=== PATIENT | female | born 1970 | race Caucasian/White ===

== ENCOUNTER 2021-02-05 11:41 | Day surgery (SDC) | payer BC, OTHER ==
[~2021-02-05] VITALS: Ht 170.2 cm; Wt 118.1 kg
[~2021-02-05 11:41] MED LIST: ASPIR 8181 MG PO; DILTIAZEM 24HR180 M3 PO; DUTASTERIDE0.5 MG; DUTASTERIDE0.5 MG PO; IBUPROFEN800 MG PO; MOBIC15 MG; MOBIC15 MG PO; OMEGA-31000 MG PO; OMEPRAZOLE20 MG PO; PRESERVISION A1 EAC3 PO; SIMVASTATIN20 MG PO; TOPAMAX25 MG PO; VITAMIN D32000 UNI1 PO; ZOLOFT100 MG PO
--- NOTE | 2021-02-05 14:57 | NUR ---
02/05/21 1457 Syl Henley 1404 PT ARRIVED IN PACU AWAKE WITH NO C/O'S. 1415 SITTING UP IN BED SIPPING ON JUICE. 1430 DC INSTRUCTIONS GIVEN. ALL QUESTIONS ANSWERED. 1440 LEFT VIA W/C.
--- NOTE | 2021-02-10 12:23 | OR ---
[facility] [address] [place], [place] [address] Signed DATE OF OPERATION: 02/05/2021 SURGEON: Scot Man MD PREOPERATIVE DIAGNOSES: 1. Known history of probable irritable bowel syndrome. 2. Family history of colon cancer (rectal cancer, father). 3. Recent history of significant constipation. POSTOPERATIVE DIAGNOSIS: Polyps x2 and otherwise normal colon. PROCEDURE: 1. Total colonoscopy to cecum with biopsy of cecum and rectum. 2. Cold morcellation polypectomy x1 of splenic flexure polyp. 3. Cold snare polypectomy of rectosigmoid polyp with application of hemoclip. ANESTHESIA: Intravenous sedation, fentanyl 100 mcg and Versed 7 mg. INDICATION: This 50-year-old white woman is a patient currently of Dr. Callahan of [place], [place]. She previously saw TRAVIS Gonzalez. She has family history of rectal cancer in her father. The patient is known to me from the past having been treated for irritable bowel syndrome (alternating constipation with diarrhea) and was markedly improved with a low FODMAP diet. She additionally had significant weight loss, likely related to the low carbohydrate component of the diet. She has since regained a fair amount of weight, having a significant amount of bereavement with the recent of her younger daughter due to gastroparesis and concomitant Hodgkin's disease. She is admitted at this time to undergo colonoscopy to better characterize her more recent episode of severe constipation such that she required emergency room evaluation. She understands the risks of colonoscopy including, but not limited to bleeding, infection and perforation, and wished to proceed. FINDINGS: The prep was good. Complete colonoscopy was undertaken to the cecum without question. She had two polyps, one in the splenic flexure. The other at the rectosigmoid. Both were excised completely. The remaining colon was normal. Biopsies were obtained to assess for occult colitis. Electronically Signed By: SCOT MAN MD 02/10/21 6723 PATIENT NAME: ROME SEVILLA OPERATIVE REPORT DATE OF : 68 REPORT #: [id number] PHYSICIAN: SCOT MAN MD PCP: SHABBIR CALLAHAN DO REPORT IS CONFIDENTIAL AND NOT TO BE RELEASED WITHOUT AUTHORIZATION [facility] [address] [place], [place] [address] Signed DESCRIPTION OF PROCEDURE: The patient was brought to the endoscopy suite and placed in the lateral decubitus position given intravenous sedation to the point of slurred speech and nystagmus. Digital rectal examination was normal. An Olympus video colonoscope was passed in the rectum and manipulated throughout the colon ultimately intubating the cecum itself. The ileocecal valve and appendiceal orifice were normal. Partial intubation of the ileum was accomplished, but it was short-lived. It appeared normal. It was too short lived to allow for biopsy unfortunately. The scope was then withdrawn and biopsy was obtained of the cecum to assess for occult colitis. Careful withdrawal of scope showed no sign of abnormality until the splenic flexure, where a small sessile probably adenomatous polyp was noted. An attempt was made to excise with a cold snare technique, but this was unsuccessful and therefore cold morcellation technique was used. Complete excision was undertaken. The scope was withdrawn more in the rectosigmoid was a larger quite obviously adenomatous polyp, this was excised with cold snare technique. There was persistent oozing at the base of the polypectomy and on that basis a hemoclip was applied. The polyp was passed for pathology. The scope was further withdrawn. Biopsies were taken of the rectum, though it appeared normal to assess for occult colitis. The scope was removed and the patient was taken to the recovery room in good condition. CONCLUDING DIAGNOSIS: Polyps x2, otherwise normal. PLAN: We would recommend re-initiation of a low FODMAP diet if possible. We will see the patient back in 4 to 6 weeks and review her progress and pathology reports at that time. MD JAZMIN Dominguez/JESSAL /[id number] cc: Dr. London Jimenez [place] Electronically Signed By: SCOT MAN MD 02/10/21 1223 PATIENT NAME: ROME SEVILLA OPERATIVE REPORT DATE OF : 68 REPORT #: [id number] PHYSICIAN: SCOT MAN MD PCP: SHABBIR CALLAHAN DO REPORT IS CONFIDENTIAL AND NOT TO BE RELEASED WITHOUT AUTHORIZATION [facility] [address] [place] [id number] Signed Copies: ~ Electronically Signed By: SCOT MAN MD 02/10/21 1223 PATIENT NAME: KANDY SEVILLANaty Alfonso OPERATIVE REPORT DATE OF : 68 REPORT #: [id number] PHYSICIAN: SCOT MAN MD PCP: SHABBIR CALLAHAN DO REPORT IS CONFIDENTIAL AND NOT TO BE RELEASED WITHOUT AUTHORIZATION
--- NOTE | 2021-02-11 12:51 | PATH ---
[facility] [place] [facility] [address] [place], [place] [address] Signed SPECIMEN(S): A CECUM SPECIMEN(S): B SPLENIC FLEXURE POLYP SPECIMEN(S): C RECTOSIGMOID POLYP SPECIMEN(S): D RECTUM SPECIMEN SOURCE: A. CECUM B. SPLENIC FLEXURE POLYP C. RECTOSIGMOID POLYP D. RECTUM CLINICAL HISTORY: Family history of colon cancer; IBS. Postop diagnosis: Polyps x 2. Rule out #3 rectosigmoid polyp MICROSCOPIC DESCRIPTION: Histologic sections of all submitted blocks are examined by light microscopy. These findings, together with the gross examination, support the pathologic diagnosis. FINAL PATHOLOGIC DIAGNOSIS: A. Colon, cecum, biopsy: - Colonic mucosa with no histopathologic abnormality. - Negative for active, chronic, or microscopic colitis. - Negative for dysplasia or malignancy. B. Colon, splenic flexure, polyp, polypectomy: - Tubular adenoma. - Negative for high-grade dysplasia or malignancy. C. Colon, rectosigmoid, polyp, polypectomy: - Fragments of tubular adenoma. - Negative for high-grade dysplasia or malignancy. D. Rectum, biopsy: - Rectal mucosa with no histopathologic abnormality. - Negative for dysplasia or malignancy. NAL:cml:C2NR GROSS DESCRIPTION: Four specimens are received in four containers, labeled `` Rome Souza. A. The specimen, labeled "Rome Souza, #1," and designated as "Merritt, cecum" is received in formalin and consists of two basurto soft tissue fragments that measure 0.3 and 0.4 cm in PATIENT NAME: ROME SOUZA PATHOLOGY DATE OF : 68 REPORT #: [id number] PHYSICIAN: YASH JACKSON PCP: SHABBIR TOVAR DO REPORT IS CONFIDENTIAL AND NOT TO BE RELEASED WITHOUT AUTHORIZATION [facility] [place] [facility] [address] [facility] [place] [address] Signed greatest dimension. The specimen is entirely submitted in cassette (A1). B. The specimen, labeled "Rome Souza, #2," and designated as "[place], splenic flexure polyp" is received in formalin and consists of two basurto soft tissue fragments that measure 0.2 and 0.3 cm in greatest dimension. The specimen is entirely submitted in cassette (B1). C. The specimen, labeled "Harley, Rome, #3," and designated as "Harley, rectosigmoid polyp" is received in formalin and consists of two basurto soft tissue fragments that measure 0.3 and 0.5 cm in greatest dimension. The specimen is entirely submitted in cassette (C1). D. The specimen, labeled "Rome Souza, #4," and designated as "[place]erritt, rectum" is received in formalin and consists of one basurto soft tissue fragment that measures 0.3 cm in greatest dimension. The specimen is entirely submitted in cassette (D1). FB (under the direct supervision of a pathologist) The Gross Description was prepared using a voice recognition system. The report was reviewed for accuracy; however, sound-alike word errors, addition and/or deletions may occur. If there is any question about this report, please contact Client Services. PERFORMING LABORATORY: The technical component was performed by [facility], [address] [place] [address] (Manager Managed Care: Tammy Nunes MD; CLIA# [id number]). [facility] was [facility], [address] [place] [address] (CLIA# [id number]). Diagnostician: Sofi Radford MD Pathologist Electronically Signed 02/11/2021 Copies: ~ PATIENT NAME: ROME SOUZA PATHOLOGY DATE OF : 68 REPORT #: [id number] PHYSICIAN: YASH PATHOLOGY PCP: SHABBIR TOVAR DO REPORT IS CONFIDENTIAL AND NOT TO BE RELEASED WITHOUT AUTHORIZATION
== END 2021-02-05 14:40 | disposition home or self-care (01) ==
LOC: DS 11:41 → OPS 11:41 → DS 13:00 → OPS 14:40
PROVIDERS: ATTEND Surgery
PROC: 0DBL8ZX Excision of Transverse Colon, Via Natural or Artificial Opening Endoscopic, Diagnostic (ICD-10-PCS; 2021-02-05)
PROC: 0DBN8ZX Excision of Sigmoid Colon, Via Natural or Artificial Opening Endoscopic, Diagnostic (ICD-10-PCS; principal; 2021-02-05 13:00)
DX: K58.2 Mixed irritable bowel syndrome (principal); D12.3 Benign neoplasm of transverse colon; D12.7 Benign neoplasm of rectosigmoid junction; K21.9 Gastro-esophageal reflux disease without esophagitis; E66.01 Morbid (severe) obesity due to excess calories; Z68.41 Body mass index [BMI] 40.0-44.9, adult; Z88.1 Allergy status to other antibiotic agents; Z88.5 Allergy status to narcotic agent; Z80.0 Family history of malignant neoplasm of digestive organs
CPT/HCPCS: 99153; G0500; J2250; J3010; J7121

== ENCOUNTER 2024-04-04 12:12 | Day surgery (SDC) | payer BC, OTHER ==
[~2024-04-04] VITALS: Ht 170.2 cm; Wt 123.6 kg
[~2024-04-04 12:12] MED LIST changes: +IBLOOD GLUCOSE TEST STRIP 1 EA TEST VI PRN; +LACTATED RINGER'S 1,000 ML IV SCH; +LIDOCAINE HCL 1% 5 ML SDV INJ ONE; +LIDOCAINE HCL 4% 50 ML BTL TOP SCH; +MIDAZOLAM HCL 5 MG/5 ML VIAL IV PRN; +MIDAZOLAM HCL 5 MG/5 ML VIAL ONE; +fentaNYL citrate 100 MCG/2 ML VIAL IV PRN; +fentaNYL citrate 100 MCG/2 ML VIAL ONE
[2024-04-04] MEDS ORDERED: CRESTOR40 MG NG (12:37)
[2024-04-04 12:47] VITALS: BP 138/88
--- NOTE | 2024-04-04 14:23 | NUR ---
04/04/24 1423 Raven Leon 1415- PT ARRIVES TO PACU REACTIVE TO VOICE. PT REPORTS NO PAIN OR NAUSEA. RESP EVEN AND UNLABORED. OXYGEN SAT HIGH 90'S ON 1L VIA CO2 NC. 1421- DR. MAN AT THE BEDSIDE TO TALK WITH THE PT.
[2024-04-04 15:35] VITALS: BP 141/90
--- NOTE | 2024-04-04 19:29 | OR ---
[facility] [address] [place], [place] [address] Signed DATE OF OPERATION: 04/04/2024 SURGEON: Scot Man MD PREOPERATIVE DIAGNOSES: 1. Family history of rectal cancer (father). 2. Known gastroesophageal reflux disease. 3. History of polyps in 2020. POSTOPERATIVE DIAGNOSES: 1. Normal colon to cecum. 2. Hiatal hernia without evidence of esophagitis; mild gastritis. PROCEDURES: 1. Esophagogastroduodenoscopy with biopsy. 2. Total colonoscopy to cecum. ANESTHESIA: Intravenous sedation; fentanyl 150 mcg and Versed 7 mg total. INDICATIONS: This 53-year-old white woman is a patient of Dr. Callahan of [place], [place]. She is known to me from the past. She last underwent colonoscopy in 2020 where she was found to have three polyps, all were excised. She has family history of rectal cancer in her father. She has no current symptoms of bleeding, diarrhea, or constipation. Additionally, she has underlying long-standing gastroesophageal reflux disease. She has never had evaluation for this to assess for Rodas's esophagus or other abnormalities. She is admitted at this time to undergo upper endoscopy and colonoscopy. She understands the risk of bleeding, infection, and perforation. FINDINGS: Upper endoscopy showed no evidence of neoplasm, Rodas's esophagus, or even esophagitis proper. She did have a small hiatal hernia and very poor flap valve. There was mild antral gastritis but no sign of ulceration. CLOtest was negative 20 minutes post procedure. On colonoscopy, the prep was quite good. Complete colonoscopy was undertaken to the cecum. There was no evidence of polyps, diverticular formation, colitis, or cancer. DESCRIPTION OF PROCEDURE: Electronically Signed By: SCOT MAN MD 04/04/241928 PATIENT NAME: ROME SEVILLA OPERATIVE REPORT DATE OF : 68 REPORT #: [id number] PHYSICIAN: SCOT MAN MD PCP: SHABBIR CALLAHAN DO REPORT IS CONFIDENTIAL AND NOT TO BE RELEASED WITHOUT AUTHORIZATION [facility] [address] [place], [place] [address] Signed The patient was brought to the endoscopy suite and placed in the lateral decubitus position, given lidocaine hypopharyngeal anesthesia. She was given intravenous sedation to the point of slurred speech and nystagmus with full cardiopulmonary monitoring. A bite block was placed. An Olympus video upper endoscope was passed in the hypopharynx. The vocal cords appeared normal. Scope was advanced to the esophagus without problem, throughout its length it was entirely normal. There was no sign of stricture, neoplasm, inflammation, Rodas's epithelium, or other problem. The scope was advanced to the stomach which was insufflated with air. Rugal folds were normal. The scope was passed to the antrum, which showed mild inflammatory change but not much and certainly no ulceration. The pylorus was normal. Scope was passed through into the duodenal which was normal. Biopsies were taken of the duodenum to assess for celiac disease. The scope was withdrawn and biopsy was then taken of the antrum for both KESHA and pathologic testing. Retroflexed view was undertaken showing a poor flap valve and with withdrawal of the easy passage into the esophagus consistent with very poor flap valve and hiatal hernia. The scope was straightened withdrawn and biopsies then taken of the normal-appearing mucosa of the distal esophagus. Further withdrawal allowed for biopsy of the mid esophagus which was also normal. Reinspection of the vocal cords showed them to be normal. The scope was removed and plans were made for colonoscopy. Additional sedation was given and digital rectal examination performed showing no sign of abnormality. Olympus video colonoscope was passed in the rectum and manipulated throughout the colon ultimately intubating the cecum itself. The ileocecal valve and appendiceal orifice were normal. The prep was quite good. The scope was then withdrawn and examination throughout showed no sign of polyps, diverticular formation, colitis, or cancer. Retroflexed view of the rectum was normal. Scope was removed. The patient was taken to the recovery room in good condition. CONCLUDING DIAGNOSES: 1. Hiatal hernia without associated esophagitis, mild gastritis. 2. Normal colon. PLAN: 1. Recommend continued use of PPI medication for symptom control. Medication is safe on long-term (see [facility] Bulletin winter issue 2020). 2. Repeat colonoscopy in 5 years based on 1st degree relative with colon cancer (father, rectum). She will return to the ongoing care of Hom[facility] Brooks [place]. Scot Man MD Electronically Signed By: SCOT MAN MD 04/04/24 1929 PATIENT NAME: ROME SEVILLA OPERATIVE REPORT DATE OF : 68 REPORT #: [id number] PHYSICIAN: SCOT AMN MD PCP: SHABBIR CALLAHAN DO REPORT IS CONFIDENTIAL AND NOT TO BE RELEASED WITHOUT AUTHORIZATION [address] [address] Signed /[facility] /[id number] cc: Hom[facility] Brooks [place]. Copies: ~ Electronically Signed By: SCOT MAN MD 04/04/24 1929 PATIENT NAME: ROME SEVILLA DARLEEN OPERATIVE REPORT DATE OF : 68 REPORT #: [id number] PHYSICIAN: SCOT MAN MD PCP: SHABBIR CALLAHAN DO REPORT IS CONFIDENTIAL AND NOT TO BE RELEASED WITHOUT AUTHORIZATION
--- NOTE | 2024-04-07 14:29 | PATH ---
[facility] [address] [place], [place] [address] Signed SPECIMEN(S): A DUODENAL BIOPSY SPECIMEN(S): B ANTRUM BIOPSY SPECIMEN(S): C LOWER ESOPHAGUS BIOPSY SPECIMEN(S): D MID ESOPHAGUS BIOPSY SPECIMEN SOURCE: A. DUODENAL BIOPSY B. ANTRUM BIOPSY C. LOWER ESOPHAGUS BIOPSY D. MID ESOPHAGUS BIOPSY CLINICAL HISTORY: GERD, history of polyps. Small hiatal hernia, mild gastritis, normal colon. FINAL PATHOLOGIC DIAGNOSIS: A. Duodenum, biopsy: - No significant histopathology. B. Stomach, antrum, biopsy: - No significant histopathologic alterations. C. Esophagus, lower, biopsy: - Portions of unremarkable gastric mucosa. - Portions of unremarkable squamous mucosa. - No evidence of Rodas's esophagus. D. Esophagus, mid, biopsy: - Portions of unremarkable squamous mucosa. COMMENT: A. The sections from the duodenal biopsy show portions of duodenal mucosa with long fingerlike villi. There is no villous atrophy, crypt hyperplasia or intraepithelial lymphocytosis making a diagnosis of celiac disease unlikely. There is no evidence of peptic duodenitis, microorganisms, abnormal infiltrates or neoplasia. B. The sections through the gastric biopsies show fragments of histologically unremarkable oxyntic mucosa. There is no evidence of acute or chronic inflammation. There is no evidence of H. pylori, intestinal metaplasia, abnormal infiltrates or neoplasia. C. The sections show fragments of unremarkable gastric and squamous mucosa. There is no evidence of acute or chronic inflammation. The specialized columnar epithelium of Rodas's esophagus is not identified. There is no evidence of Helicobacter pylori. D. The biopsy shows normal appearing squamous epithelium. There is no evidence PATIENT NAME: ROME SEVILLA PATHOLOGY DATE OF : 68 REPORT #: [id number] PHYSICIAN: YASH JACKSON PCP: SHABBIR TOVAR DO REPORT IS CONFIDENTIAL AND NOT TO BE RELEASED WITHOUT AUTHORIZATION [facility] [address] [place], [place] [address] Signed of acute or chronic inflammation. No glandular mucosa is present. [facility] MICROSCOPIC EXAMINATION: Histologic sections of all submitted blocks are examined by light microscopy. These findings, together with the gross examination, support the pathologic diagnosis. GROSS DESCRIPTION: A. The specimen, labeled and designated "[place], T, duodenal biopsy," is received in formalin and consists of two basurto soft tissue fragments, ranging from 0.3-0.5 cm. Entirely submitted in (A1). B. The specimen, labeled and designated "[place], T, antrum biopsy one," is received in formalin and consists of one basurto soft tissue fragment, 0.4 cm. Entirely submitted in (B1). C. The specimen, labeled and designated "Harley, T, lower esophagus biopsy," is received in formalin and consists of two basurto soft tissue fragments, ranging from 0.3-0.5 cm. Entirely submitted in (C1). D. The specimen, labeled and designated "[place], T, mid esophagus biopsy," is received in formalin and consists of two basurto soft tissue fragments, ranging from 0.1-0.6 cm. Entirely submitted in (D1). HS (under the direct supervision of a pathologist) The Gross Description was prepared using a voice recognition system. The report was reviewed for accuracy; however, sound-alike word errors, addition and/or deletions may occur. If there is any question about this report, please contact Client Services. ADDITIONAL NOTES: Immunohistochemical and/or in situ hybridization studies if performed in this case included appropriate positive controls that reacted as expected. This test was developed and its performance characteristics determined by [facility]. It has not been cleared or approved by the U.S. Food and Drug Administration. The FDA has determined that such clearance or approval is not necessary. This test is used for clinical purposes. It should not be regarded as investigational or for research. [facility] is certified under the Clinical Laboratory Improvement Amendments of 1988 (CLIA) as qualified to perform high complexity clinical laboratory testing. PATIENT NAME: ROME SEVILLA PATHOLOGY DATE OF : 68 REPORT #: [id number] PHYSICIAN: [employer] MANUEL PCP: SHABBIR TOVAR DO REPORT IS CONFIDENTIAL AND NOT TO BE RELEASED WITHOUT AUTHORIZATION [facility] [address] [place], [place] [address] Signed PERFORMING LABORATORY: Technical component was performed by [facility], [address] [place] [id number] (CLIA# [id number]). Professional interpretation was performed by [facility], [address] [place] [address] (CLIA#:[id number]). Diagnostician: Herman Gamble MD Pathologist Electronically Signed 04/07/2024 Copies: ~ PATIENT NAME: HARLEYJACKIEBLUNaty MOREJON PATHOLOGY DATE OF : 68 REPORT #: [id number] PHYSICIAN: YASH JACKSON PCP: SHABBIR TOVAR DO REPORT IS CONFIDENTIAL AND NOT TO BE RELEASED WITHOUT AUTHORIZATION
== END 2024-04-04 15:40 | disposition home or self-care (01) ==
LOC: OPS 12:12 → DS 12:12 → OPS 13:45
PROVIDERS: ATTEND Surgery
PROC: 0DB38ZX Excision of Lower Esophagus, Via Natural or Artificial Opening Endoscopic, Diagnostic (ICD-10-PCS; 2024-04-04)
PROC: 0DB28ZX Excision of Middle Esophagus, Via Natural or Artificial Opening Endoscopic, Diagnostic (ICD-10-PCS; 2024-04-04)
PROC: 0DJD8ZZ Inspection of Lower Intestinal Tract, Via Natural or Artificial Opening Endoscopic (ICD-10-PCS; 2024-04-04)
PROC: 0DB98ZX Excision of Duodenum, Via Natural or Artificial Opening Endoscopic, Diagnostic (ICD-10-PCS; principal; 2024-04-04 13:45)
PROC: 0DB68ZX Excision of Stomach, Via Natural or Artificial Opening Endoscopic, Diagnostic (ICD-10-PCS; 2024-04-04 13:45)
DX: K29.70 Gastritis, unspecified, without bleeding (principal); K44.9 Diaphragmatic hernia without obstruction or gangrene; K21.9 Gastro-esophageal reflux disease without esophagitis; K58.9 Irritable bowel syndrome, unspecified; G47.30 Sleep apnea, unspecified; F32.9 Major depressive disorder, single episode, unspecified; E66.01 Morbid (severe) obesity due to excess calories; Z80.0 Family history of malignant neoplasm of digestive organs; Z86.010 Personal history of colon polyps; Z88.8 Allergy status to other drugs, medicaments and biological substances; Z68.41 Body mass index [BMI] 40.0-44.9, adult
CPT/HCPCS: 99153; G0500; J2250; J3010; J7121

== ENCOUNTER 2024-08-04 11:51 | Day surgery (SDC) | payer BC, OTHER ==
[~2024-08-04] VITALS: Ht 170.2 cm; Wt 123.6 kg
[~2024-08-04 11:51] MED LIST changes: +CETIRIZINE HCL10 MG PO; +CRESTOR40 MG NG; +DULOXETINE HCL60 MG PO; +FLUTICASONE PRO16 GM NAS; +GABAPENTIN100 MG PO; -MIDAZOLAM HCL 5 MG/5 ML VIAL IV PRN; -MIDAZOLAM HCL 5 MG/5 ML VIAL ONE; +PRAVASTATIN SOD40 MG PO; +VENTOLIN HFA18 GM PO; -fentaNYL citrate 100 MCG/2 ML VIAL IV PRN; -fentaNYL citrate 100 MCG/2 ML VIAL ONE
[2024-08-04] MEDS ORDERED: PANTOPRAZOLE SO40 MG PO (12:16)
[2024-08-04 12:18] VITALS: BP 139/83
[2024-08-04] MEDS ORDERED: MIDAZOLAM HCL 5 MG/5 ML VIAL ONE (13:30)
[2024-08-04] MEDS ORDERED: fentaNYL citrate 100 MCG/2 ML VIAL ONE (13:30)
--- NOTE | 2024-08-04 14:37 | NUR ---
08/04/24 1437 Belem Almeida 1425- PT ARRIVES TO THE PACU WITH A NATURAL AIRWAY. NC IN PLACE WITH 1L OF O2. LR INFUSING IN HER L HAND. PT LAYING ON HER LEFT SIDE. PT OPENS EYES AND IS RESPONSIVE TO VERBAL STIMULI. PT COMPLAINS OF SOME NAUSEA AND A HEADACHE. ALL MONITORS IN PLACE. VSS. PT DENIES PAIN. 1435- MD AT BEDSIDE TALKING WITH PT.
[2024-08-04 15:03] VITALS: BP 132/74
--- NOTE | 2024-08-07 11:13 | OR ---
[facility] [address] [place], [place] [address] Signed DATE OF OPERATION: 08/04/2024 SURGEON: Scot Man MD PREOPERATIVE DIAGNOSES: 1. Longstanding gastroesophageal reflux symptoms, well controlled with PPI medication. 2. Obesity. POSTOPERATIVE DIAGNOSIS: Hiatal hernia without evidence of esophagitis and no evidence of Rodas's epithelium. PROCEDURE: Esophagogastroduodenoscopy with biopsy. ANESTHESIA: Intravenous sedation; fentanyl 100 mcg, Versed 4 mg. INDICATION: This obese 54-year-old woman is a patient of Dr. Callahan of [place], [place], has longstanding reflux disease. She has good symptom controlled on PPI medication. She has undergone colonoscopy and upper endoscopy by me in the past. She is here for consideration of surveillance upper endoscopy. Understands the risk of bleeding, infection, and perforation. FINDINGS: There is no inflammation of the esophagus at all. There is no Rodas's epithelium. Midesophagus did show some concentric rings, but no clear evidence of eosinophilic esophagitis. She did have a moderate to large-sized hiatal hernia but no actual inflammation associated with reflux from it. Stomach and duodenum were normal. CLOtest was negative 15 minutes post procedure. PROCEDURE IN DETAIL: The patient was brought to the endoscopy suite and placed in lateral decubitus position given intravenous sedation to the point of slurred speech and nystagmus. Full cardiopulmonary monitoring was maintained. A bite block was placed. An Olympus video upper endoscope was passed in the hypopharynx. The vocal cords were normal. Scope was advanced to the esophagus throughout its length, it was normal and the scope was then passed in the stomach which was insufflated with air. Rugal folds were normal as was the antrum. Pylorus was normal. Scope was passed through into the duodenum. The duodenum was normal. Biopsies were obtained to assess for celiac disease. The scope Electronically Signed By: SCOT MAN MD 08/07/24 1113 PATIENT NAME: ROME SEVILLA OPERATIVE REPORT DATE OF : 68 REPORT #: [id number] PHYSICIAN: SCOT MAN MD PCP: SHABBIR CALLAHAN DO REPORT IS CONFIDENTIAL AND NOT TO BE RELEASED WITHOUT AUTHORIZATION [facility] [address] [place], [place] [address] Signed was withdrawn. A biopsy was then taken of the antrum for both KESHA and pathologic testing. Retroflexed view confirmed a moderate size hiatal hernia. The scope was withdrawn to the distal esophagus. Mucosa was perfectly normal. There was no evidence of Rodas's epithelium or the slightest bit of inflammation. Biopsies were then taken of the distal esophagus and subsequently midesophagus as it did have some concentric rings, though not through felinization. Further withdrawal showed no other findings. The patient was taken to the recovery room in good condition. CONCLUDING DIAGNOSIS: Hiatal hernia without esophagitis. PLAN: We will see her back in one year in followup for her reflux disease. She will continue with her PPI medication 20 mg omeprazole daily. She will return to the ongoing care of Dr. Callahan in [place], [place]. MD JAZMIN Dominguez/TIERNEY /[id number] cc: Dr. Callahan Copies: ~ Electronically Signed By: SCOT MAN MD 08/07/24 1113 PATIENT NAME: ROME SEVILLA [facility] OPER[facility]IVE REPORT DATE OF : 68 REPORT #: [id number] PHYSICIAN: SCOT MAN MD PCP: SHABBIR CALLAHAN DO REPORT IS CONFIDENTIAL AND NOT TO BE RELEASED WITHOUT AUTHORIZATION
--- NOTE | 2024-08-08 18:33 | PATH ---
[facility] [address], [place] [address] Signed SPECIMEN(S): A DUODENAL BIOPSY SPECIMEN(S): B ANTRUM BIOPSY SPECIMEN(S): C DISTAL ESOPHAGEAL BIOPSY SPECIMEN(S): D MID ESOPHAGEAL BIOPSY SPECIMEN SOURCE: A. DUODENAL BIOPSY B. ANTRUM BIOPSY C. DISTAL ESOPHAGEAL BIOPSY D. MID ESOPHAGEAL BIOPSY CLINICAL HISTORY: History of GERD. Abdominal pain, hiatal hernia. FINAL PATHOLOGIC DIAGNOSIS: A. Duodenal biopsy: - Benign duodenal mucosa, negative for specific diagnostic abnormality. B. Antrum biopsy: - Benign gastric mucosa with focal slight chronic inflammation. - Negative for evidence of Helicobacter organisms on routine HE stained sections. C. Distal esophageal biopsy: - Benign esophageal epithelium, negative for increased epithelial eosinophils. - Negative for glandular mucosa. D. Mid esophageal biopsy: - Benign esophageal epithelium, negative for increased epithelial eosinophils. JVR:ashely MICROSCOPIC EXAMINATION: Histologic sections of all submitted blocks are examined by light microscopy. These findings, together with the gross examination, support the pathologic diagnosis. GROSS DESCRIPTION: A. The specimen, labeled and designated "Rhodhiss, duodenal biopsy," is received in formalin and consists of two basurto soft tissue fragments, ranging from 0.2-0.3 cm. Entirely submitted in (A1). B. The specimen, labeled and designated "Harley, antrum biopsy," is received in formalin and consists of two basurto soft tissue fragments, ranging from 0.3-0.4 cm. Entirely submitted in (B1). C. The specimen, labeled and designated "Harley, distal esophageal PATIENT NAME: ROME SEVILLA PATHOLOGY DATE OF : 68 REPORT #: [id number] PHYSICIAN: YASH JACKSON PCP: SHABBIR TOVAR DO REPORT IS CONFIDENTIAL AND NOT TO BE RELEASED WITHOUT AUTHORIZATION [facility] [address], [place] [address] Signed biopsy," is received in formalin and consists of three basurto soft tissue fragments, ranging from 0.1-0.2 cm. Entirely submitted in (C1). D. The specimen, labeled and designated "Harley, mid esophageal biopsy," is received in formalin and consists of four basurto soft tissue fragments, ranging from 0.2-0.4 cm. Entirely submitted in (D1). VB (under the direct supervision of a pathologist) The Gross Description was prepared using a voice recognition system. The report was reviewed for accuracy; however, sound-alike word errors, addition and/or deletions may occur. If there is any question about this report, please contact Client Services. PERFORMING LABORATORY: Technical component was performed by [facility], [address] [place] [id number] (CLIA# [id number]). Professional interpretation was performed by [facility], [address] [place] [id number] (CLIA#: [id number]). Diagnostician: Daniel Blakely MD Pathologist Electronically Signed 08/08/2024 Copies: ~ PATIENT NAME: ROME SEVILLA PATHOLOGY DATE OF : 68 REPORT #: [id number] PHYSICIAN: YASH PATHOLOGY PCP: SHABBIR TOVAR DO REPORT IS CONFIDENTIAL AND NOT TO BE RELEASED WITHOUT AUTHORIZATION
== END 2024-08-04 15:10 | disposition home or self-care (01) ==
LOC: OPS 11:51 → DS 11:55 → OPS 12:15 → DS 12:15 → OPS 13:00
PROVIDERS: ATTEND Surgery
PROC: 0DB58ZX Excision of Esophagus, Via Natural or Artificial Opening Endoscopic, Diagnostic (ICD-10-PCS; principal; 2024-08-04 13:00)
DX: K44.9 Diaphragmatic hernia without obstruction or gangrene (principal); K21.9 Gastro-esophageal reflux disease without esophagitis; K29.50 Unspecified chronic gastritis without bleeding; K58.9 Irritable bowel syndrome, unspecified; E66.01 Morbid (severe) obesity due to excess calories; Z68.41 Body mass index [BMI] 40.0-44.9, adult; Z88.1 Allergy status to other antibiotic agents; Z88.5 Allergy status to narcotic agent; Z79.899 Other long term (current) drug therapy; Z80.0 Family history of malignant neoplasm of digestive organs
CPT/HCPCS: 99153; G0500; J2250; J3010; J7121